=== PATIENT | male | born 1970 | race Caucasian/White ===

== ENCOUNTER 2021-01-24 04:34 | Day surgery (SDC) | payer OTHER ==
[2021-01-21 16:34] VITALS: BMI 26.4
[2021-01-24 10:49] VITALS: TEMP 98
[2021-01-24 11:41] VITALS: BP 111/71; PULSE 80
== END 2021-01-24 11:33 | disposition home or self-care (01) ==
LOC: JASU-ENDO 04:34
PROVIDERS: ATTEND Internal Medicine Gastroenterology
PROC: 0DJD8ZZ Inspection of Lower Intestinal Tract, Via Natural or Artificial Opening Endoscopic (ICD-10-PCS; principal; 2021-01-24 09:45)
DX: Z12.11 Encounter for screening for malignant neoplasm of colon (principal); K64.8 Other hemorrhoids